=== PATIENT | male | born 1945 | race Caucasian/White ===

== ENCOUNTER 2017-06-17 09:49 | Inpatient (IN) | payer OTHER ==
[~2017-06-17] VITALS: Ht 170.2 cm; Wt 85.5 kg
[~2017-06-17 09:49] MED LIST: ATORVASTATIN CA40 MG PO; GABAPENTIN300 MG PO; meloxicam
[2017-06-17 12:15] LABS: HEMATOCRIT 37.4 % (38.0-50.0); MCH 30.9 PG (29.0-34.0); MCHC 34.8 G/DL (30.0-36.0); MCV 88.8 FL (86-99); PLATELET COUNT 238 K/uL (156-360); RBC DIS.WIDTH-CV 12.3 % (11.8-14.6); RBC DIS.WIDTH-SD 39.8 % (39-53); RED BLOOD COUNT 4.21 M/uL (4.00-5.50)
[2017-06-17 12:26] LABS: CHLORIDE 104 mEq/L (99-109); POTASSIUM 4.8 mEq/L (3.7-5.4); SODIUM 139 mEq/L (136-147)
[2017-06-17 12:28] LABS: GLUCOSE 114 mg/dL (70-99)
[2017-06-17 12:32] LABS: CREATININE 6.5 mg/dL (0.6-1.3); GFR ESTIMATE (CALCULATED) 9 mL/min/ (58.99-99999)
[2017-06-17 12:33] LABS: UREA NITROGEN (BUN) 49 mg/dL (9-23)
[2017-06-17 13:12] LABS: ALBUMIN 4.2 g/dL (3.2-4.8)
[2017-06-17 13:15] LABS: TOTAL PROTEIN 7.7 g/dL (6.4-8.3)
[2017-06-17 13:16] LABS: TOTAL BILIRUBIN 0.6 mg/dL (0.0-1.0)
[2017-06-17 13:17] LABS: ALKALINE PHOSPHATASE 88 IU/L (3-129)
[2017-06-17 13:20] LABS: AST (GOT) 26 IU/L (2-34); DIRECT BILIRUBIN 0.2 mg/dL (0.0-0.3)
[2017-06-17 13:21] LABS: ALT (GPT) 30 IU/L (3-49)
[2017-06-17 13:40] LABS: APPEARANCE SL.HAZY ((CLEAR)); BILIRUBIN NEGATIVE; BLOOD NEGATIVE; COLOR YELLOW ((YELLOW)); GLUCOSE (STRIP) NEGATIVE; KETONES NEGATIVE; LEUKOCYTES NEGATIVE; NITRITE NEGATIVE; PROTEIN (STRIP) NEGATIVE; UROBILINOGEN 0.2 MG/DL (0.2-1.0)
[2017-06-17 13:43] LABS: BACTERIA NONE SEEN /HPF; EPITHELIAL CELLS RARE /HPF; HYALINE CASTS 0-5 /LPF; MUCUS TRACE /LPF; RED BLOOD CELLS 0-5 /HPF (0-5); UCUL ADDED? NO; WHITE BLOOD CELLS 0-5 /HPF (0-5)
[2017-06-17] MEDS ORDERED: METFORMIN HCL500 MG PO (15:00)
[2017-06-17] MEDS ORDERED: ATORVASTATIN CA40 MG PO (15:01)
[2017-06-17] MEDS ORDERED: GABAPENTIN300 MG PO (15:01)
[2017-06-17] MEDS ORDERED: LO-DOSE ASPIRIN81 M2 PO (15:03)
[2017-06-17] MEDS ORDERED: LOSARTAN-HCTZ1 EAC2 PO (15:03)
[2017-06-17] MEDS ORDERED: ONE DAILY FOR1 EAC2 PO (15:04)
[2017-06-17 20:28] LABS: UR CREATININE CONCENTRATION 109.8 MG/DL
[2017-06-17 20:55] VITALS: BP 116/59
[2017-06-17 23:02] VITALS: BP 101/58
[2017-06-18 03:34] VITALS: BP 110/61
[2017-06-18 08:41] VITALS: BP 113/62
[2017-06-18 09:13] LABS: CHLORIDE 108 MEQ/L (99-109); CREATININE 5.5 MG/DL (0.6-1.3); GFR ESTIMATE (CALCULATED) 11 mL/min/ (58.99-99999); GLUCOSE 120 mg/dL (70-99); POTASSIUM 4.8 MEQ/L (3.7-5.4); SODIUM 140 MEQ/L (136-147); UREA NITROGEN (BUN) 52 mg/dL (9-23)
[2017-06-18 16:28] VITALS: BP 105/64
[2017-06-18 23:00] VITALS: BP 103/63
[2017-06-19 06:07] LABS: BASOPHIL (%) 0.3 % (0-1); EOSINOPHIL (%) 3.6 % (0-5); EOSINOPHIL COUNT 0.2 K/uL (0-0.3); HEMATOCRIT 30.6 % (38.0-50.0); IMMATURE GRANULOCYTE (%) 0.3 % (0.0-0.7); LYMPHOCYTE (%) 26.2 % (15-42); LYMPHOCYTE COUNT 1.5 K/uL (1.0-2.8); MCH 30.6 PG (29.0-34.0); MCHC 34.6 G/DL (30.0-36.0); MCV 88.4 FL (86-99); MONOCYTE (%) 9.5 % (3-12); MONOCYTE COUNT 0.6 K/uL (0-0.8); NEUTROPHIL (%) 60.1 % (45-76); NEUTROPHIL COUNT 3.5 K/uL (1.8-6.4); PLATELET COUNT 183 K/uL (156-360); RBC DIS.WIDTH-CV 12.1 % (11.8-14.6); RED BLOOD COUNT 3.46 M/uL (4.00-5.50); WHITE BLOOD COUNT 5.8 K/uL (4.1-10.2)
[2017-06-19 06:09] LABS: HEMOGLOBIN 10.6 G/DL (12.5-16.6)
[2017-06-19 06:27] LABS: ALBUMIN 3.1 G/DL (3.2-4.8); ALKALINE PHOSPHATASE 68 IU/L (3-129); ALT (GPT) 15 IU/L (3-49); AST (GOT) 18 IU/L (2-34); CHLORIDE 112 MEQ/L (99-109); GFR ESTIMATE (CALCULATED) 14 mL/min/ (58.99-99999); GLUCOSE 118 mg/dL (70-99); MAGNESIUM 2.2 mg/dl (1.3-2.7); PHOSPHORUS 4.6 mg/dL (2.5-4.9); POTASSIUM 4.6 MEQ/L (3.7-5.4); SODIUM 142 MEQ/L (136-147); TOTAL BILIRUBIN 0.4 MG/DL (0.0-1.0); TOTAL PROTEIN 5.7 G/DL (6.4-8.3); UREA NITROGEN (BUN) 49 mg/dL (9-23)
[2017-06-19 06:31] LABS: CREATININE 4.4 MG/DL (0.6-1.3)
[2017-06-19 07:27] VITALS: BP 115/71
[2017-06-19 16:37] VITALS: BP 128/77
[2017-06-19 23:57] VITALS: BP 133/72
[2017-06-20 06:43] LABS: ALBUMIN 3.4 G/DL (3.2-4.8); ALKALINE PHOSPHATASE 73 IU/L (3-129); ALT (GPT) 21 IU/L (3-49); AST (GOT) 22 IU/L (2-34); CHLORIDE 113 MEQ/L (99-109); GLUCOSE 142 mg/dL (70-99); POTASSIUM 4.5 MEQ/L (3.7-5.4); SODIUM 143 MEQ/L (136-147); UREA NITROGEN (BUN) 40 mg/dL (9-23)
[2017-06-20 06:48] LABS: CREATININE 3.5 MG/DL (0.6-1.3); GFR ESTIMATE (CALCULATED) 18 mL/min/ (58.99-99999); TOTAL BILIRUBIN 0.5 MG/DL (0.0-1.0)
[2017-06-20 07:47] VITALS: BP 133/72
[2017-06-20 15:27] VITALS: BP 128/69
[2017-06-21 00:02] VITALS: BP 125/58
[2017-06-21 07:11] LABS: BASOPHIL (%) 0.3 % (0-1); EOSINOPHIL (%) 1.9 % (0-5); EOSINOPHIL COUNT 0.2 K/uL (0-0.3); HEMATOCRIT 33.3 % (38.0-50.0); HEMOGLOBIN 11.4 G/DL (12.5-16.6); IMMATURE GRANULOCYTE (%) 0.9 % (0.0-0.7); LYMPHOCYTE (%) 15.5 % (15-42); LYMPHOCYTE COUNT 1.2 K/uL (1.0-2.8); MCH 30.8 PG (29.0-34.0); MCHC 34.2 G/DL (30.0-36.0); MONOCYTE (%) 8.9 % (3-12); MONOCYTE COUNT 0.7 K/uL (0-0.8); NEUTROPHIL (%) 72.5 % (45-76); NEUTROPHIL COUNT 5.7 K/uL (1.8-6.4); PLATELET COUNT 210 K/uL (156-360); RBC DIS.WIDTH-CV 12.1 % (11.8-14.6); RBC DIS.WIDTH-SD 39.9 % (39-53); WHITE BLOOD COUNT 7.9 K/uL (4.1-10.2)
[2017-06-21 07:12] LABS: CHLORIDE 114 MEQ/L (99-109); GLUCOSE 115 mg/dL (70-99); POTASSIUM 4.1 MEQ/L (3.7-5.4); SODIUM 144 MEQ/L (136-147); UREA NITROGEN (BUN) 33 mg/dL (9-23)
[2017-06-21 07:21] LABS: CREATININE 2.6 MG/DL (0.6-1.3); GFR ESTIMATE (CALCULATED) 26 mL/min/ (58.99-99999); MAGNESIUM 1.5 mg/dl (1.3-2.7)
[2017-06-21 07:38] VITALS: BP 115/57
[2017-06-21 10:29] VITALS: BP 124/60
[2017-06-21 17:13] VITALS: BP 154/80
[2017-06-21 23:31] VITALS: BP 138/69
[2017-06-22 07:59] VITALS: BP 120/63
[2017-06-22 10:07] LABS: HEMATOCRIT 29.3 % (38.0-50.0); HEMOGLOBIN 10.1 G/DL (12.5-16.6); MCH 30.5 PG (29.0-34.0); MCHC 34.5 G/DL (30.0-36.0); MCV 88.5 FL (86-99); PLATELET COUNT 198 K/uL (156-360); RBC DIS.WIDTH-CV 12.1 % (11.8-14.6); RBC DIS.WIDTH-SD 39.4 % (39-53); RED BLOOD COUNT 3.31 M/uL (4.00-5.50); WHITE BLOOD COUNT 7.5 K/uL (4.1-10.2)
[2017-06-22 10:43] LABS: CHLORIDE 109 MEQ/L (99-109); GFR ESTIMATE (CALCULATED) 33 mL/min/ (58.99-99999); POTASSIUM 3.6 MEQ/L (3.7-5.4); SODIUM 137 MEQ/L (136-147); UREA NITROGEN (BUN) 24 mg/dL (9-23)
[2017-06-22 10:50] LABS: CREATININE 2.1 MG/DL (0.6-1.3); GLUCOSE 206 mg/dL (70-99)
[2017-06-22 16:18] VITALS: BP 171/95
[2017-06-23 00:15] VITALS: BP 143/67
[2017-06-23 07:02] LABS: HEMATOCRIT 29.4 % (38.0-50.0); HEMOGLOBIN 10.2 G/DL (12.5-16.6); MCH 30.4 PG (29.0-34.0); MCHC 34.7 G/DL (30.0-36.0); MCV 87.5 FL (86-99); PLATELET COUNT 236 K/uL (156-360); RBC DIS.WIDTH-CV 12.1 % (11.8-14.6); RBC DIS.WIDTH-SD 38.9 % (39-53); RED BLOOD COUNT 3.36 M/uL (4.00-5.50); WHITE BLOOD COUNT 7.5 K/uL (4.1-10.2)
[2017-06-23 07:21] LABS: ALBUMIN 3.3 G/DL (3.2-4.8); ALKALINE PHOSPHATASE 71 IU/L (3-129); ALT (GPT) 17 IU/L (3-49); AST (GOT) 19 IU/L (2-34); CHLORIDE 113 MEQ/L (99-109); CREATININE 1.7 MG/DL (0.6-1.3); GFR ESTIMATE (CALCULATED) 42 mL/min/ (58.99-99999); POTASSIUM 3.6 MEQ/L (3.7-5.4); TOTAL PROTEIN 5.9 G/DL (6.4-8.3); UREA NITROGEN (BUN) 20 mg/dL (9-23)
[2017-06-23 07:26] LABS: GLUCOSE 105 mg/dL (70-99); SODIUM 145 MEQ/L (136-147); TOTAL BILIRUBIN 0.7 MG/DL (0.0-1.0)
[2017-06-23 08:00] VITALS: BP 160/71
[2017-06-23 16:20] VITALS: BP 146/74
[2017-06-23 20:24] VITALS: BP 131/68
[2017-06-24 00:09] VITALS: BP 138/63
[2017-06-24 07:02] LABS: HEMATOCRIT 28.5 % (38.0-50.0); HEMOGLOBIN 10.1 G/DL (12.5-16.6); MCH 30.8 PG (29.0-34.0); MCHC 35.4 G/DL (30.0-36.0); MCV 86.9 FL (86-99); PLATELET COUNT 234 K/uL (156-360); RBC DIS.WIDTH-CV 12.2 % (11.8-14.6); RBC DIS.WIDTH-SD 38.8 % (39-53); RED BLOOD COUNT 3.28 M/uL (4.00-5.50); WHITE BLOOD COUNT 6.4 K/uL (4.1-10.2)
[2017-06-24 07:28] VITALS: BP 131/64
[2017-06-24 08:35] LABS: ALBUMIN 3.3 G/DL (3.2-4.8); ALKALINE PHOSPHATASE 67 IU/L (3-129); ALT (GPT) 17 IU/L (3-49); AST (GOT) 23 IU/L (2-34); CHLORIDE 112 MEQ/L (99-109); CREATININE 1.6 MG/DL (0.6-1.3); GFR ESTIMATE (CALCULATED) 45 mL/min/ (58.99-99999); GLUCOSE 106 mg/dL (70-99); LIPASE 32 U/L (1.0-51.0); POTASSIUM 3.3 MEQ/L (3.7-5.4); SODIUM 143 MEQ/L (136-147); TOTAL BILIRUBIN 0.8 MG/DL (0.0-1.0); TOTAL PROTEIN 5.9 G/DL (6.4-8.3); UREA NITROGEN (BUN) 20 mg/dL (9-23)
[2017-06-24 15:41] VITALS: BP 143/73
[2017-06-24 18:14] LABS: C DIFF TOXIN NEGATIVE (NEGATIVE)
[2017-06-24 18:25] LABS: STOOL OCCULT BLD 1ST SPECIMEN NEGATIVE
[2017-06-24 23:08] VITALS: BP 149/69
[2017-06-25 06:05] LABS: BASOPHIL (%) 0.1 % (0-1); EOSINOPHIL (%) 0 % (0-5); HEMATOCRIT 30.3 % (38.0-50.0); HEMOGLOBIN 10.8 G/DL (12.5-16.6); IMMATURE GRANULOCYTE (%) 0.8 % (0.0-0.7); LYMPHOCYTE (%) 10.5 % (15-42); LYMPHOCYTE COUNT 0.8 K/uL (1.0-2.8); MCHC 35.6 G/DL (30.0-36.0); MCV 87.1 FL (86-99); MONOCYTE (%) 3.3 % (3-12); MONOCYTE COUNT 0.3 K/uL (0-0.8); NEUTROPHIL (%) 85.3 % (45-76); NEUTROPHIL COUNT 6.7 K/uL (1.8-6.4); PLATELET COUNT 278 K/uL (156-360); RBC DIS.WIDTH-CV 12.2 % (11.8-14.6); RED BLOOD COUNT 3.48 M/uL (4.00-5.50); WHITE BLOOD COUNT 7.9 K/uL (4.1-10.2)
[2017-06-25 06:54] LABS: ALBUMIN 3.4 G/DL (3.2-4.8); ALKALINE PHOSPHATASE 67 IU/L (3-129); ALT (GPT) 18 IU/L (3-49); AST (GOT) 22 IU/L (2-34); CHLORIDE 112 MEQ/L (99-109); CREATININE 1.4 MG/DL (0.6-1.3); GFR ESTIMATE (CALCULATED) 53 mL/min/ (58.99-99999); POTASSIUM 3.9 MEQ/L (3.7-5.4); SODIUM 145 MEQ/L (136-147); TOTAL PROTEIN 6.1 G/DL (6.4-8.3); UREA NITROGEN (BUN) 21 mg/dL (9-23)
[2017-06-25 06:55] LABS: GLUCOSE 173 mg/dL (70-99); TOTAL BILIRUBIN 0.6 MG/DL (0.0-1.0)
[2017-06-25 07:35] LABS: TROP-I INTERPRETATION NEGATIVE; TROPONIN-I 0.02 ng/mL (0.0-0.30)
[2017-06-25 08:47] VITALS: BP 145/101
[2017-06-25 12:17] VITALS: BP 140/75
[2017-06-25 16:19] VITALS: BP 149/81
[2017-06-25 19:39] VITALS: BP 158/86
[2017-06-26 00:05] VITALS: BP 138/95
[2017-06-26 03:33] VITALS: BP 142/67
[2017-06-26] MEDS ORDERED: GABAPENTIN100 MG PO (06:15)
[2017-06-26] MEDS ORDERED: PANTOPRAZOLE SO40 MG PO (06:15)
[2017-06-26] MEDS ORDERED: TAMSULOSIN HCL0.4 MG PO (06:15)
[2017-06-26 07:12] LABS: BASOPHIL (%) 0.1 % (0-1); EOSINOPHIL (%) 0 % (0-5); HEMATOCRIT 30.1 % (38.0-50.0); HEMOGLOBIN 10.8 G/DL (12.5-16.6); IMMATURE GRANULOCYTE (%) 1.2 % (0.0-0.7); LYMPHOCYTE (%) 7.8 % (15-42); LYMPHOCYTE COUNT 0.9 K/uL (1.0-2.8); MCHC 35.9 G/DL (30.0-36.0); MCV 86.5 FL (86-99); MONOCYTE (%) 3.6 % (3-12); MONOCYTE COUNT 0.4 K/uL (0-0.8); NEUTROPHIL (%) 87.3 % (45-76); NEUTROPHIL COUNT 9.9 K/uL (1.8-6.4); PLATELET COUNT 302 K/uL (156-360); RBC DIS.WIDTH-CV 12.5 % (11.8-14.6); RBC DIS.WIDTH-SD 38.8 % (39-53); RED BLOOD COUNT 3.48 M/uL (4.00-5.50); WHITE BLOOD COUNT 11.4 K/uL (4.1-10.2)
[2017-06-26 07:38] LABS: ALBUMIN 3.5 G/DL (3.2-4.8); ALKALINE PHOSPHATASE 68 IU/L (3-129); ALT (GPT) 21 IU/L (3-49); AST (GOT) 26 IU/L (2-34); CHLORIDE 110 MEQ/L (99-109); CREATININE 1.4 MG/DL (0.6-1.3); GFR ESTIMATE (CALCULATED) 53 mL/min/ (58.99-99999); GLUCOSE 161 mg/dL (70-99); POTASSIUM 3.4 MEQ/L (3.7-5.4); SODIUM 145 MEQ/L (136-147); TOTAL BILIRUBIN 0.5 MG/DL (0.0-1.0); TOTAL PROTEIN 6.2 G/DL (6.4-8.3); UREA NITROGEN (BUN) 28 mg/dL (9-23)
== END 2017-06-26 07:55 | disposition home or self-care (01) | DRG 698 ==
LOC: EME 09:49 → EDOF 15:27 → 5EAST 15:27 → ENRESERV 15:28 → CANRESERV 17:41 → ENRESERV 17:47 → 5EAST 20:49 → ENPENDDIS 06-26 → 5EAST 06-26 07:55
PROVIDERS: Internal Medicine; Internal Medicine Gastroenterology; Internal Medicine Nephrology
PROC: 0DB78ZX Excision of Stomach, Pylorus, Via Natural or Artificial Opening Endoscopic, Diagnostic (ICD-10-PCS; principal; 2017-06-24)
DX: N13.9 Obstructive and reflux uropathy, unspecified (principal); N17.0 Acute kidney failure with tubular necrosis; N28.1 Cyst of kidney, acquired; I10 Essential (primary) hypertension; E87.70 Fluid overload, unspecified; J90 Pleural effusion, not elsewhere classified; K26.9 Duodenal ulcer, unspecified as acute or chronic, without hemorrhage or perforation; E11.40 Type 2 diabetes mellitus with diabetic neuropathy, unspecified; E87.6 Hypokalemia; J81.1 Chronic pulmonary edema; E86.0 Dehydration; T50.2X5A Adverse effect of carbonic-anhydrase inhibitors, benzothiadiazides and other diuretics, initial encounter; I27.20 Pulmonary hypertension, unspecified; E78.5 Hyperlipidemia, unspecified; E87.2 Acidosis; K29.80 Duodenitis without bleeding; K29.60 Other gastritis without bleeding; K76.0 Fatty (change of) liver, not elsewhere classified; E66.9 Obesity, unspecified; K57.30 Diverticulosis of large intestine without perforation or abscess without bleeding; D64.9 Anemia, unspecified; K59.00 Constipation, unspecified; Z79.899 Other long term (current) drug therapy; Z86.010 Personal history of colon polyps
CPT/HCPCS: 71045; 72148; 74176; 76705; 76770; 80048; 80053; 80076; 81003; 82272; 82436; 82570; 82948; 83605; 83690; 83735; 83880; 84100; 84156; 84300; 84484; 85025; 85027; 87493; 87506; 88305; 88342 TC; 93005; 93306; 94640; 94640 76; 94760; 99202; 99281; 99285; C1753; J0456; J1644; J1815; J1940; J2405; J2930; J3480; J7030

== ENCOUNTER 2017-06-29 08:33 | Inpatient (IN) | payer OTHER ==
[~2017-06-29] VITALS: Ht 172.7 cm; Wt 82.1 kg
[~2017-06-29 08:33] MED LIST changes: +GABAPENTIN100 MG PO; +LO-DOSE ASPIRIN81 M2 PO; +LOSARTAN-HCTZ1 EAC2 PO; +METFORMIN HCL500 MG PO; +ONE DAILY FOR1 EAC2 PO; +PANTOPRAZOLE SO40 MG PO; +TAMSULOSIN HCL0.4 MG PO
[2017-06-29 09:55] LABS: HEMATOCRIT 30.6 % (38.0-50.0); MCH 30.6 PG (29.0-34.0); MCHC 35.9 G/DL (30.0-36.0); PLATELET COUNT 276 K/uL (156-360); RBC DIS.WIDTH-CV 12.3 % (11.8-14.6); RBC DIS.WIDTH-SD 37.4 % (39-53); WHITE BLOOD COUNT 9.5 K/uL (4.1-10.2)
[2017-06-29 10:03] LABS: ALBUMIN 3.6 g/dL (3.2-4.8); CHLORIDE 110 mEq/L (99-109); POTASSIUM 3.2 mEq/L (3.7-5.4); SODIUM 143 mEq/L (136-147)
[2017-06-29 10:05] LABS: GLUCOSE 119 mg/dL (70-99)
[2017-06-29 10:06] LABS: TOTAL PROTEIN 6.3 g/dL (6.4-8.3)
[2017-06-29 10:07] LABS: TOTAL BILIRUBIN 0.6 mg/dL (0.0-1.0)
[2017-06-29 10:09] LABS: ALKALINE PHOSPHATASE 72 IU/L (3-129); CREATININE 1.1 mg/dL (0.6-1.3); GFR ESTIMATE (CALCULATED) > 59 mL/min/ (58.99-99999)
[2017-06-29 10:10] LABS: UREA NITROGEN (BUN) 14 mg/dL (9-23)
[2017-06-29 10:11] LABS: AST (GOT) 25 IU/L (2-34)
[2017-06-29 10:12] LABS: ALT (GPT) 30 IU/L (3-49)
[2017-06-29 11:18] LABS: APPEARANCE CLEAR ((CLEAR)); BILIRUBIN NEGATIVE; BLOOD NEGATIVE; COLOR YELLOW ((YELLOW)); GLUCOSE (STRIP) NEGATIVE; KETONES NEGATIVE; LEUKOCYTES NEGATIVE; NITRITE NEGATIVE; PROTEIN (STRIP) NEGATIVE; SPECIFIC GRAVITY 1.013 (1.000-1.030); UROBILINOGEN 0.2 MG/DL (0.2-1.0)
[2017-06-29 12:06] LABS: TROP-I INTERPRETATION NEGATIVE; TROPONIN-I 0.02 ng/mL (0.0-0.30)
[2017-06-29 14:58] LABS: HDL CHOLESTEROL 28 MG/DL (Desirable>=40); LDL CHOLESTEROL 69 mg/dL (Desirable<100); NON-HDL CHOLESTEROL 101 mg/dL (Desirable<160); TOTAL CHOLESTEROL 129 mg/dL (Desirable<200); TRIGLYCERIDES 162 MG/DL (Normal: <150)
[2017-06-29 16:50] VITALS: BP 180/86
[2017-06-29 19:56] VITALS: BP 141/62
[2017-06-30] VITALS (7 sets, daily range): BP systolic 125–153; BP diastolic 64–81
[2017-06-30 07:54] LABS: CHLORIDE 107 MEQ/L (99-109); CREATININE 1.1 MG/DL (0.6-1.3); GFR ESTIMATE (CALCULATED) > 59 mL/min/ (58.99-99999); GLUCOSE 121 mg/dL (70-99); POTASSIUM 3.7 MEQ/L (3.7-5.4); SODIUM 143 MEQ/L (136-147); UREA NITROGEN (BUN) 14 mg/dL (9-23)
[2017-07-01 03:32] VITALS: BP 138/78
[2017-07-01 08:32] LABS: HEMOGLOBIN A1c (GLYCOHEMOGLOB) 6.9 % (Below 5.7)
[2017-07-01 08:40] VITALS: BP 144/84
[2017-07-01] MEDS ORDERED: AMLODIPINE BESYL5 MG PO (09:00)
[2017-07-01] MEDS ORDERED: DONEPEZIL HCL5 MG PO (09:00)
[2017-07-01] MEDS ORDERED: ASPIR-LOW81 MG PO (09:00)
== END 2017-07-01 12:22 | disposition home health service (06) | DRG 884 ==
LOC: EME 08:33 → EDOF 14:06 → ENRESERV 14:20 → 5SOUTH 16:21
PROVIDERS: Internal Medicine; Nurse Practitioner Family
DX: F03.90 Unspecified dementia, unspecified severity, without behavioral disturbance, psychotic disturbance, mood disturbance, and anxiety (principal); F05 Delirium due to known physiological condition; I10 Essential (primary) hypertension; N28.9 Disorder of kidney and ureter, unspecified; R47.01 Aphasia; G62.9 Polyneuropathy, unspecified; E11.9 Type 2 diabetes mellitus without complications; E87.6 Hypokalemia; R29.704 NIHSS score 4; D64.9 Anemia, unspecified; R26.9 Unspecified abnormalities of gait and mobility; E78.5 Hyperlipidemia, unspecified; K26.9 Duodenal ulcer, unspecified as acute or chronic, without hemorrhage or perforation; Z86.73 Personal history of transient ischemic attack (TIA), and cerebral infarction without residual deficits; Z87.891 Personal history of nicotine dependence; Z79.84 Long term (current) use of oral hypoglycemic drugs
CPT/HCPCS: 70450; 70551; 71046; 80048; 80053; 80061; 81003; 82140; 82948; 83036; 84484; 85027; 92610 GN; 93005; 93880; 99281; 99285

== ENCOUNTER 2018-01-16 09:59 | Emergency (ER) | payer OTHER ==
[~2018-01-16] VITALS: Ht 170.2 cm; Wt 78.7 kg
[~2018-01-16 09:59] MED LIST changes: +AMLODIPINE BESYL5 MG PO; +ASPIR-LOW81 MG PO; +DONEPEZIL HCL5 MG PO
[2018-01-16 11:07] LABS: BASOPHIL (%) 0.5 % (0-1); BASOPHIL COUNT 0.1 K/uL (0-0.1); EOSINOPHIL (%) 5.1 % (0-5); EOSINOPHIL COUNT 0.6 K/uL (0-0.3); HEMATOCRIT 39.6 % (38.0-50.0); HEMOGLOBIN 13.4 G/DL (12.5-16.6); IMMATURE GRANULOCYTE (%) 0.5 % (0.0-0.7); LYMPHOCYTE (%) 12.5 % (15-42); LYMPHOCYTE COUNT 1.4 K/uL (1.0-2.8); MCH 28.9 PG (29.0-34.0); MCHC 33.8 G/DL (30.0-36.0); MCV 85.5 FL (86-99); MONOCYTE (%) 8.4 % (3-12); MONOCYTE COUNT 0.9 K/uL (0-0.8); PLATELET COUNT 240 K/uL (156-360); RBC DIS.WIDTH-CV 13.3 % (11.8-14.6); RBC DIS.WIDTH-SD 41.2 % (39-53); RED BLOOD COUNT 4.63 M/uL (4.00-5.50)
[2018-01-16 11:18] LABS: CHLORIDE 107 mEq/L (99-109); POTASSIUM 4.2 mEq/L (3.7-5.4); SODIUM 141 mEq/L (136-147)
[2018-01-16 11:20] LABS: GLUCOSE 129 mg/dL (70-99)
[2018-01-16 11:23] LABS: CREATININE 1.1 mg/dL (0.6-1.3); GFR ESTIMATE (CALCULATED) > 59 mL/min/ (58.99-99999)
[2018-01-16 11:24] LABS: UREA NITROGEN (BUN) 17 mg/dL (9-23)
[2018-01-16 11:29] LABS: TROP-I INTERPRETATION NEGATIVE; TROPONIN-I < 0.01 ng/mL (0.0-0.30)
[2018-01-16 13:08] VITALS: BP 116/74
== END 2018-01-16 13:10 | disposition home or self-care (01) ==
LOC: EME 09:59
PROVIDERS: Emergency Medicine
DX: R55 Syncope and collapse (principal); R94.31 Abnormal electrocardiogram [ECG] [EKG]; E11.9 Type 2 diabetes mellitus without complications; I10 Essential (primary) hypertension; E78.5 Hyperlipidemia, unspecified; F03.90 Unspecified dementia, unspecified severity, without behavioral disturbance, psychotic disturbance, mood disturbance, and anxiety; Z79.84 Long term (current) use of oral hypoglycemic drugs; Z98.890 Other specified postprocedural states; Z88.0 Allergy status to penicillin
CPT/HCPCS: 71045; 80048; 84484; 85025; 93005; 99281; 99284; J7040